=== PATIENT | female | born 1940 | race Caucasian/White ===

== ENCOUNTER 2021-04-15 16:51 | Emergency (ER) | payer MEDICARE, SELFPAY ==
[2021-04-15 16:53] VITALS: BP 148/86; PULSE 129; RESP 16; TEMP 36.7; O2SAT 96; BMI 21.2
--- NOTE | 2021-04-15 17:37 | EDS_ITS ---
HPI History of Present Illness HPI Narrative: Dog bite left hand Chief Complaint: Bite Informant: patient Occured/Mechanism Mechanism/Context: Yes injury Onset/Context/Timing Onset: Days Context: Gradual Onset Current Severity: Mild Maximum Severity: Mild Associated Symptoms Associated Symptoms: Negative for Parasthesia, Weakness and Loss of Funtion Narrative Narrative: 80-year-old female past medical history of COPD. States she was bit by her dog on Tuesday evening. On her left hand she left hand dominant. Now has redness and swelling. She denies any fever or chills. Prior similar symptoms: No Recent Illness/Hospitalization: No ROS ROS ED ROS Narrative Denies illness. Review of Systems ROS Unobtainable: Denies due to encephalopathy Constitutional Constitutional ED: Denies chills or fever(s) Eyes Eyes: Denies change in vision ENT ENT ED: Denies ear pain or sore throat Cardiovascular Cardiovascular: Denies chest pain Respiratory/Chest Respiratory/Chest: Denies dyspnea Gastrointestinal Gastrointestinal: Denies abdominal pain, nausea or vomiting Genitourinary Genitourinary ED: Denies dysuria Musculoskeletal Musculoskeletal: Denies myalgias Integumentary Denies rash Neurologic Neurologic: Denies headache(s) Psychiatric Psychiatric: Denies depression Endocrine Endocrinology: Denies polyuria Hematologic/Lymphatic Hematologic/Lymphatic: Denies easy bruising Allergic/Immunologic Allergic/Immunologic ED: Denies urticaria PFSH PFSH Medical History COPD (chronic obstructive pulmonary disease) Home Medications amoxicillin-pot clavulanate [Augmentin] 1 tab PO BID 10 Days #20 tab 04/15/21 [Rx Last Taken Unknown] Allergy/AdvReac Type Severity Reaction Status Date / Time ANTIBIOTICS Allergy NEEDS Uncoded 04/15/21 16:52 FOLLOW-UP Surgical History History of lumpectomy S/P appendectomy Social History Smoking Status: Former smoker EXAM Physical Exam Narrative Exam Narrative: 80-year-old female no acute distress vital signs stable afebrile. HEENT exam normal. Neck nontender. Left hand at the palm she is a puncture wound at the base of her left long finger near the webspace. There is swelling and cellulitis. She Can Open and Close Her Left Hand. There Is No Signs of Tenosynovitis. There Is No Streaking. The Forearm and Upper Arm and Axilla Are Nontender. There Is No Axillary Lymphadenopathy. Left Hand Is Neurovascularly Intact. Otherwise Exam Unremarkable. Const Vital Signs: 04/15/21 16:53 Temperature 98.1 F Temperature Source Temporal Pulse Rate 129 H Respiratory Rate 16 Blood Pressure 148/86 H Blood Pressure Mean 106 Pulse Ox 96 Oxygen Delivery Method Room Air Positive well nourished and well developed; Negative for obese or cachectic General Appearance ED: well developed and NAD; Negative for cachectic Nutritional Appearance: Negative for cachectic or obese HEENT Reports moist mucous membranes normocephalic and atraumatic Eyes PERRL and EOMs intact bilaterally Neck full ROM and no lymphadenopathy General: Negative for tenderness Resp normal respiratory effort and clear to auscultation bilaterally Auscultation: Negative for rales, rhonchi or wheezes Cardio regular rate, regular rhythm, S1 normal heart sound and no murmurs GI non-tender, non-distended and no masses Auscultation: normoactive bowel sounds Palpation: soft; Negative for tender, guarding or rebound tenderness present Back/Spine no CVA tenderness Extremity normal to inspection Extremity Narrative: Extremities normal except left hand palm puncture wound dog bite left hand base of the left long finger. Redness and swelling. No lymphangitic streaking. No axillary lymphadenopathy. Nontender forearm. Able to open and close her hand no signs of tenosynovitis. Discussed with the patient admission for IV antibiotics and she refuses. She understands the risk. Neuro oriented x3 Sensorium / Orientation: alert, oriented to person, oriented to place and oriented to time; Negative for orientation impaired, confused, lethargic or stuporous Motor Exam: strength 5/5 throughout Psych mental status grossly normal and thought process normal Skin Skin Narrative: Left hand cellulitis and swelling. Primarily along the metacarpal phalangeal joints of the index long and ring fingers. No tenosynovitis. Obvious dog bite soft tissue infection. MDM MDM MDM Narrative Medical decision making narrative: Patient has a dog bite left hand infection. She is left-hand dominant. Bushra with the patient at length. I try to talk her and that being admitted for IV antibiotics she definitely wants to try this at home with oral antibiotics. She understands it may get a lot worse and this may result in her needing hand surgery and again she does not want to be admitted. She knows to return if increasing pain, swelling with fever or streaks. She will be given a dose of Augmentin here and placed on Augmentin for the next 10 days. She has no primary care physician. Discharge Plan Triage Chief Complaint: Bite ED Provider: Spike Mercedes Dx/Rx/DC Orders Clinical Impression: Dog bite of left hand with infection Instructions: ED Dog Bite Prescriptions: New amoxicillin-pot clavulanate [Augmentin] 875-125 mg tablet 1 tab PO BID 10 Days Qty: 20 RF: 0 Primary Care Provider: Care Physician,No Primary Referrals: Tiago Ren MD [STAFF PHYSICIAN] - 2 Days Care Physician,No Primary [Primary Care Provider] - Activity Restrictions/Additional Instructions: Ice and elevate your left hand to decrease pain and swelling. Tylenol for pain and Motrin for pain and swelling. Return immediately if looking a lot worse meaning increasing pain, increasing sw elling, increasing redness or streaks up in your forearm or fever. The oral antibiotics may not work and you may end up back in the emergency department and needs surgery on your hand and admitted for IV antibiotics. Follow-up to ensure this is worse related. Disposition Disposition: Home, Self Care
[2021-04-15] MEDS: Amox/Clavulanate 875 MG Tablet PO (17:57)
== END 2021-04-15 17:58 | disposition home or self-care (01) ==
PROVIDERS: Emergency Provider Emergency Medicine
DX: S60.572A Other superficial bite of hand of left hand, initial encounter (principal); L03.114 Cellulitis of left upper limb; W54.0XXA Bitten by dog, initial encounter; Y93.9 Activity, unspecified; Y92.9 Unspecified place or not applicable; Y99.9 Unspecified external cause status; J44.9 Chronic obstructive pulmonary disease, unspecified; Z87.891 Personal history of nicotine dependence
CPT/HCPCS: 99283

== ENCOUNTER 2021-04-19 00:35 | Emergency (ER) | payer MEDICARE, SELFPAY ==
[2021-04-19 00:37] VITALS: BP 141/78; PULSE 99; RESP 19; TEMP 36.6; O2SAT 98; BMI 21.4
[2021-04-19 00:41] VITALS: BP 141/78; PULSE 103; RESP 17; TEMP 36.9; O2SAT 99
--- NOTE | 2021-04-19 01:00 | RAD_ITS ---
STUDY: X-RAY - LEFT HAND REASON FOR EXAM: Female, 80 years old. Dog bite redness and swelling in the MCP joint TECHNIQUE: 3 view(s) of the left hand. COMPARISON: None. FINDINGS: Mild soft tissue swelling about the third MCP joint. No radiopaque foreign body. No fracture or dislocation. Degenerative changes at the first CMC joint and all interphalangeal joints. RAD/Hand Min 3 Views IMPRESSION: Soft tissue swelling about the third MCP joint without radiopaque foreign body or finding of fracture. Electronically Signed: Jensen Thurston MD at 1:25 EDT Tel , Service support ,
--- NOTE | 2021-04-19 01:05 | EDS_ITS ---
HPI History of Present Illness Chief Complaint: Bite Informant: patient Narrative Narrative: Left hand dominant female presents for wound check left hand. Patient had a dog bite a week ago today it was her own dog. Unknown on her tetanus history. Reports was seen 4 days later at this hospital and evaluated. States there was significant swelling and redness of the hand, states she was placed on Augmentin for 10 days. She has been taking the medications. She reports the swelling has improved. She reports there is increasing redness around the wound over 2 days and today noted little swelling of the forearm. Denies fevers or drainage from the site. She is not a diabetic. She came stating she was told that this should all improve in 2 days and has not. Reviewing records, noted she was seen and was recommended potential admission for IV antibiotics. It was told to her that this could worsen significantly and will require return for admission. However per patient's report swelling has improved. Tetanus Immunization: Unknown [facility] Medical History COPD (chronic obstructive pulmonary disease) Home Medications amoxicillin-pot clavulanate [Augmentin] 1 tab PO BID 10 Days #20 tab 04/15/21 [Rx Last Taken Unknown] Allergy/AdvReac Type Severity Reaction Status Date / Time ANTIBIOTICS Allergy NEEDS Uncoded 04/19/21 00:43 FOLLOW-UP Surgical History History of lumpectomy S/P appendectomy Social History Smoking Status: Former smoker ROS ROS ED Constitutional Constitutional ED: Denies chills, fever(s) or sweats Eyes Eyes: Denies change in vision ENT ENT ED: Denies dysphagia or sore throat Cardiovascular Cardiovascular: Denies chest pain, leg edema, palpitations or racing heartbeat Respiratory/Chest Respiratory/Chest: Denies cough, dyspnea or dyspnea on exertion Gastrointestinal Gastrointestinal: Denies abdominal pain, diarrhea, nausea or vomiting Genitourinary Genitourinary ED: Denies dysuria, hematuria or urinary frequency Musculoskeletal Musculoskeletal: Denies back pain, extremity pain or neck pain Integumentary Reports rash and other Details: Dog bite left hand ; Denies wounds Neurologic Neurologic: Denies headache(s), paresthesias or weakness EXAM Physical Exam Const Vital Signs: 04/19/21 00:37 04/19/21 00:41 04/19/21 02:46 Temperature 98 F 98.5 F Temperature Source Temporal Temporal Pulse Rate 99 103 H 108 H Respiratory Rate 19 H 17 18 Blood Pressure 141/78 H 141/78 H 154/79 H Blood Pressure Mean 99 99 Pulse Ox 98 99 95 Oxygen Delivery Method Room Air Room Air Positive well nourished and well developed General Appearance ED: well developed and NAD HEENT Reports moist mucous membranes normocephalic and atraumatic Eyes PERRL, EOMs intact bilaterally and conjunctivae normal General Eye ED: Yes normal appearance of both eyes Neck no lymphadenopathy and supple General: Negative for tenderness Chest Wall Chest: Negative for tenderness Resp normal respiratory effort and normal air movement Effort and Inspection: symmetric chest movement; Negative for respiratory distress Cardio regular rate, regular rhythm and no murmurs Peripheral Pulses: pulses 2+ throughout GI normal to inspection, nondistended, normoactive bowel sounds and non-tender Palpation: Negative for guarding or rebound tenderness present Back/Spine no CVA tenderness and no thoracic nor lumbar tenderness Extremity normal to inspection General Extremety ED: Negative for edema or tenderness General Extremity: Negative for edema Neuro oriented x3 and no sensory deficits noted Sensorium / Orientation: awake and alert Skin Skin Narrative: Left upper extremity: Puncture scabbing at the third webspace dorsally, erythema around this site there is slight swelling dorsal aspect of the hand. There is no pain with movement of the fingers. There is no active drainage. Slight swelling at the ulnar aspect of the distal forearm very minimal redness. There is no medial arm erythema, there is no axillary lymphadenopathy. There is no crepitus of the skin. MDM MDM MDM Narrative Medical decision making narrative: Patient returns for evaluation reporting slight increased redness at the wound area however swelling has improved. She has been taking her Augmentin. Due to concerns I did check labs white count 7.3. X-ray noted mild soft tissue swelling. She was given a dose of Unasyn. With patient's history and exam concerns for gravity induced swelling at the distal forearm. There is mild erythema in this area however this is away from the lymph node regions. She is having better range of motion when discussed with patient with the decrease in swelling. Discussed good wound care with the patient I do feel she is safe for discharge home. She will finish her antibiotics. The erythema was outlined with return precautions. She was given follow-up with Dr. Ren from her last visit, information given for outpatient follow-up. All questions were answered. Lab Data Attestation: I reviewed the patient's lab results. Labs: Laboratory Results - last 24 hr 04/19/21 04/19/21 00:57 00:57 WBC 7.3 RBC 4.69 Hgb 13.8 Hct 40.9 MCV 87.2 MCH 29.4 MCHC 33.7 RDW Std Deviation 41.5 RDW Coeff of Moon 13.1 Plt Count 233 MPV 11.8 Immature Gran % (Auto) 0.400 Neut % (Auto) 58.8 Lymph % (Auto) 30.4 [place] % (Auto) 7.4 Eos % (Auto) 2.6 Baso % (Auto) 0.4 Absolute Neuts (auto) 4.3 Absolute Lymphs (auto) 2.21 Nucleated RBC % 0 Sodium 141 Potassium 3.2 L Chloride 106 Carbon Dioxide 29.0 Anion Gap 6 BUN 23 H Creatinine 0.62 Estim Creat Clear Calc 36.67 Est GFR (MDRD) Af Amer 119 Est GFR (MDRD) Non-Af 99 BUN/Creatinine Ratio 37.0 H Glucose 122 H Calcium 9.5 Radiography Diagnostic Testing: Clinical Impression(s) from Imaging Studies Hand X-Ray 04/19/21 01:00 IMPRESSION: Soft tissue swelling about the third MCP joint without radiopaque foreign body or finding of fracture. Electronically Signed: Jensen Thurston MD at 1:25 EDT Tel , Service support , Discharge Plan Triage Chief Complaint: Bite ED Provider: Andrew Kelly Dx/Rx/DC Orders Clinical Impression: Dog bite of left hand with infection Instructions: ED Dog Bite Prescriptions: No Action amoxicillin-pot clavulanate [Augmentin] 875-125 mg tablet 1 tab PO BID 10 Days Qty: 20 RF: 0 Primary Care Provider: Care Physician,No Primary Referrals: Tiago Ren MD [STAFF PHYSICIAN] - 5-7 Days Care Physician,No Primary [Primary Care Provider] - Activity Restrictions/Additional Instructions: Finish your antibiotic. Symptoms worsen return to the ED. Disposition Disposition: Home, Self Care Discharge Date/Time: 04/19/21 02:48
[2021-04-19 01:11] LABS: Absolute Lymphocyte Count 2.21 X10^3/uL (0.83-4.51); Absolute Neutrophil Count 4.3 X10^3/uL (2.0-7.7); Basophil# 0.03 X10^3/uL; Basophil% 0.4 % (0-1); Eosinophil# 0.19 X10^3/uL; Eosinophils% 2.6 % (0-5); Hematocrit 40.9 % (37-47); Hemoglobin 13.8 g/dL (12.0-15.0); Lymphocyte # 2.21 X10^3/ul (0.83-4.51); Lymphocyte % 30.4 % (19-41); Mean Corp Hgb Conc 33.7 g/dL (32-36); Mean Corpuscular Hgb 29.4 pg (27.0-32.0); Mean Corpuscular Volume 87.2 fL (81-99); Mean Platelet Vol. 11.8 fl (6.2-12.0); Monocyte# 0.54 X10^3/uL; Monocyte% 7.4 % (0-10); NRBC Flagged by Analyzer 0 % (0-5); Neutrophil # 4.26 X10^3/uL (2.7-7.7); Neutrophil % 58.8 % (47-70); Platelet Count 233 K/mm3 (150-450); RBC Distribution Width CV 13.1 % (11.6-14.6); RBC Distribution Width SD 41.5 fl (35.1-43.9); Red Blood Count 4.69 M/mm3 (4.2-5.4); White Blood Count 7.3 K/mm3 (4.4-11.0)
[2021-04-19 01:28] LABS: Anion Gap 6 (5-15); BUN 23 mg/dL (7-18); Calcium,Total 9.5 mg/dL (8.5-10.1); Chloride 106 mmol/L (98-107); Creatinine, Serum 0.62 mg/dL (0.55-1.02); EST Glomerular Filtration Rate 99 mL/min (>60); Est Glom Filt Rate - Afr Amer 119 mL/min (>60); Estimated Creatinine Clearance 36.67 ml/min; Glucose 122 mg/dL (74-106); Potassium 3.2 mmol/L (3.5-5.1); Sodium Level 141 mmol/L (136-145)
[2021-04-19] MEDS: Diphth,Pertuss(Acell),Tet Vac 0.5 ML Vial IM (01:29)
[2021-04-19 02:46] VITALS: BP 154/79; PULSE 108; RESP 18; O2SAT 95
== END 2021-04-19 02:48 | disposition home or self-care (01) ==
PROVIDERS: Emergency Provider Emergency Medicine
DX: S60.572A Other superficial bite of hand of left hand, initial encounter (principal); L08.9 Local infection of the skin and subcutaneous tissue, unspecified; W54.0XXA Bitten by dog, initial encounter; Y93.9 Activity, unspecified; Y92.9 Unspecified place or not applicable; Y99.9 Unspecified external cause status; Z87.891 Personal history of nicotine dependence; J44.9 Chronic obstructive pulmonary disease, unspecified
CPT/HCPCS: 73130; 80048; 85025; 90471; 90715; 96365; 99282; J7050; A4216; J0295

== ENCOUNTER 2024-12-25 04:57 | Emergency (ER) | payer MEDICARE, SELFPAY ==
[2024-12-25 04:58] VITALS: BP 157/88; PULSE 107; RESP 16; TEMP 36.1; O2SAT 95; BMI 21.8
--- OUTSIDE RECORDS SUMMARY | 2024-12-25 05:28 | XMS RPT_ITS | CCD ---
Author Organization [place] [facility] Care Team Providers Care Wader Boot Top Assembler Name Role Phone LeticiaAndrew Attending [facility] Care Physician, No Primary Primary Care Unava ilable Allergies Allergy Classification Reported Allergen(s) Allergy Type Date of Onset Reaction(s) Facility (1 source) ANTIBIOTICS; Translations: [ANTIBIOTICS] Propensity to adverse reactions (disorder) [facility] Repository Problems Problem Classification Problem Date Documented Da te Episodic/Chronic Superficial injury; contusion (1 source) Other superficial bite of hand of left hand, initial encounter; Translations: [Other superficial bite of hand of left hand, initial encounter] Onset: 02-10-2023 Episodic Results Test Name Value Interpretation Reference Range Facil jillian MANDYJIMemilia 04-15-2021 CNOV Office Visit ([facility]) DEBRA MOY ([id number]) 1940 F Date Time Provider Department 04/15/21 1:30 PM MAURY NEGRON [facility] During your visit today, we recorded the following information about you: Temperature Pulse Respiration Blood pressure 97.3 degrees 146/minute 18/minute 142/92 Weight 53.5 kg Maury Negron APRN.CNP 04/15/2021 1:57 PM Signed 80 year old female presents with left hand swelling. She was bit by dog 4 days [employer]. Right hand with diffuse erythema and swelling. Limited and reduced ROM Would benefit from ortho consult with I AND D including possible admission given extent of redness and swelling. Declines EMS. ER Passport filled out. Referring Provider: SELF [[id number]] Allergies As of Date: 04/15/2021 Noted Allergy Reaction CODEINE 10/26/2005 8 - GI Upset CONTRAST DYE (IODINE) 08/12/2015 14 - Other: See Comments Comments: Swollen veins GLUTEN 08/12/2015 11 - Vomiting Date Reviewed: 04/15/2021 Reviewed by: Elvi Alberto MA - Fully Assessed Reason for Visit: Animal Bite [[id number]] Cmt: L hand dog bite x4 days Primary Visit Diagnosis:Cellulitis of hand [L03.119] Other Visit Diagnosis:Dog bite, initial encounter [W54.0XXA] Problem List As Of Date: 04/15/2021 (None) Encounter Status:Closed by MAURY NEGRON on 04/15/21 Normal [facility] Encounters Encounter Date Encounter Type Care Provider Facility Start: 04-19-2021 End: 04-19-2021 Emergency department patient visit Andrew Kelly Facility:[facility] Payers Date Payer Category Payer Private Health Insurance [facility] 2021 Self-pay Unknown [id number] Progress note 04-15-2021 Note Date & Type Note Facility 04-15-2021 Note HNO ID: [id number] Author: Maury Negron APRN.RING MAKER Service: ? Author Type: Nurse Practitioner Type: Progress Notes Filed: 04/15/2021 1:57 PM Note Text: 80 year old female presents with left hand swelling. She was bit by dog 4 days [employer]. Right hand with diffuse erythema and swelling. Limited and reduced ROM Would benefit from ortho consult with I AND D including possible admission given extent of redness and swelling. Declines EMS. ER Passport filled out. [facility] Summary Purpose Family History No Family History Records FoundNo Family History Records Found Advance Directives No Advanced Directives Records FoundNo Advanced Directives Records Found Additional Source Comments INFORMATION SOURCE (unrecogn ized section and content) DATE CREATED AUTHOR 07/21/2021 [facility] DATE CREATED AUTHOR AUTHOR'S ORGANIZ ATION 02/11/2023 [facility] FOR RECORDS PERTAINING TO PATIENTS WHO ARE OR HAVE BEEN ENROLLED IN A CHEMICAL DEPENDENCY/SUBSTANCEABUSE PROGRAM, SOME INFORMATION MAY BE OMITTED. This clinical summary was aggregated from multiple sources. Caution should be exercised in using it in the provision of clinical care. This summary normalizes information from multiple sources, and as a consequence, information in this document may materially change the coding, format and clinical context of patient data. In addition, data may be omitted in some cases. CLINICAL DECISIONS SHOULD BE BASED ON THE PRIMARY CLINICAL RECORDS. [facility]. provides no warranty or guarantee of the accuracy or completeness of information in this document.
--- NOTE | 2024-12-25 06:50 | EDS_ITS ---
HPI History of Present Illness Chief Complaint: Dental Informant: patient Narrative Narrative: Patient is an 84-year-old female with history of COPD. She states that she gets right sided sharp intermittent stabbing facial pain intermittently. She states it typically will go away with [id number] medications and time. However this pain started last night and has continued into this morning and not allowed her to sleep. She states despite giving her time and taking iyvn-[id number]-iixfivo medications there is been no improvement and secondary to that she presents for evaluation. She denies any recent trauma she denies any fevers or chills or difficulty breathing or swallowing. [facility] Medical History COPD (chronic obstructive pulmonary disease) Home Medications ?Medication ?Instructions ?Recorded ?Last Taken ?Type amoxicillin 875 mg-potassium 1 tab PO BID 10 days #20 tabs 04/15/21 Unknown Rx clavulanate 125 mg tablet (Augmentin) baclofen 5 mg tablet 5 mg PO TID PRN muscle 12/25 Unknown Rx spasm/facial pain #30 tabs carbamazepine 200 mg tablet 200 mg PO TID 30 days #90 tabs 12/25/24 Unknown Rx (Tegretol) ondansetron 4 mg disintegrating 4 mg PO TID PRN nausea and 12/25/24 Unknown Rx tablet vomiting #21 tabs Allergy/AdvReac Type Severity Reaction Status Date / Time gluten Allergy Nausea/Vom/ Verified 12/25/24 05:04 Diarrhea Surgical History History of lumpectomy S/P appendectomy Social History Smoking Status: Former smoker ROS ROS ED Constitutional Constitutional ED: Denies chills or fever(s) Eyes Eyes: Denies change in vision ENT ENT ED: Reports other Details: Positive right sided facial pain Cardiovascular Cardiovascular: Denies chest pain Respiratory/Chest Respiratory/Chest: Denies cough or dyspnea Gastrointestinal Gastrointestinal: Reports nausea; Denies abdominal pain, diarrhea or vomiting Musculoskeletal Musculoskeletal: Denies neck pain Integumentary Denies rash Neurologic Neurologic: Denies headache(s) Hematologic/Lymphatic Hematologic/Lymphatic: Denies easy bleeding or easy bruising Allergic/Immunologic Allergic/Immunologic ED: Denies mouth swelling or tongue swelling EXAM Physical Exam Const Vital Signs: 12/25/24 04:58 12/25/24 07:09 Temperature 97 F L 98 F Temperature Source Oral Pulse Rate 107 H 77 Respiratory Rate 16 16 Blood Pressure 157/88 H 132/88 H Blood Pressure Mean 111 102 Pulse Ox 95 100 Oxygen Delivery Method Room Air Positive well nourished and well developed General Appearance ED: well developed; Negative for pallor HEENT HEENT Narrative: Normocephalic atraumatic There are dental caries noted but no signs of dental abscess No signs of ANUG No tongue or lip swelling no oral lesions no airway edema or compromise Eyes PERRL and EOMs intact bilaterally General Eye ED: Negative for scleral icterus Neck supple Neck Narrative: No nuchal rigidity or meningeal signs Resp normal respiratory effort Resp Narrative: Breath sounds are diminished throughout with faint expiratory wheeze in the bilateral bases consistent with history of COPD; however no signs of respiratory distress Cardio regular rate and regular rhythm Extremity normal to inspection Neuro oriented x3, CN's II-XII intact bilaterally and no sensory deficits noted Sensorium / Orientation: alert Motor Exam: strength 5/5 throughout Psych mental status grossly normal Skin no rashes or lesions noted and no wounds Skin Narrative: No facial swelling or redness to suggest infection such as cellulitis or abscess General Skin Exam: Negative for jaundice or pallor MDM MDM MDM Narrative Medical decision making narrative: Patient arrived to the ER hypertensive otherwise with stable vitals. She reported a shocking pain to the right side of her face that was intermittent. By exam there is no obvious signs of cellulitis or abscess or dental infection. There is no report or signs of trauma to suggest hematoma or facial fracture. With the sudden onset of her symptoms that are sharp/shocking in nature and intermittent along the right side of the face this is most likely trigeminal neuralgia. The patient was given oral carbamazepine baclofen and Zofran. She reported improvement of her pain and as there is no signs of angioedema or anaphylaxis or secondary infection do not further need for further workup and she is otherwise safe for discharge. History & Record Review Discussion w/independent historian: Patient Discharge Plan Triage Chief Complaint: Dental ED Provider: Kyler Kumari Dx/Rx/DC Orders Clinical Impression: Trigeminal neuralgia of right side of face, COPD (chronic obstructive pulmonary disease) Instructions: ED Trigeminal Neuralgia Prescriptions: New carbamazepine [Tegretol] 200 mg tablet 200 mg PO TID 30 Days Qty: 90 0RF baclofen 5 mg tablet 5 mg PO TID PRN (Reason: muscle spasm/facial pain) Qty: 30 1RF ondansetron 4 mg tablet,disintegrating 4 mg PO TID PRN (Reason: nausea and vomiting) Qty: 21 0RF No Action amoxicillin-pot clavulanate [Augmentin] 875-125 mg tablet 1 tab PO BID 10 Days Qty: 20 0RF Primary Care Provider: Care Physician,No Primary Referrals: Nicolas Barnes MD [Non-Staff -Ordering Privileges] - (? Trigeminal neuralgia) Care Physician,No Primary [Primary Care Provider] - Activity Restrictions/Additional Instructions: Please take the carbamazepine 3 times a day whether you are in pain or not as this should help prevent reoccurrence of your facial pain. If the carbamazepine is not sufficient at controlling your pain you may add the baclofen/muscle relaxer if needed. Please follow-up with neurology for further evaluation and return to the ER should you have any further concerns Print Language: Turkish Disposition Disposition: Home, Self Care Discharge Date/Time: 12/25/24 07:18
[2024-12-25 07:09] VITALS: BP 132/88; PULSE 77; RESP 16; TEMP 36.6; O2SAT 100
== END 2024-12-25 07:18 | disposition home or self-care (01) ==
PROVIDERS: Emergency Provider Emergency Medicine; Visit Provider Emergency Medicine
DX: G50.0 Trigeminal neuralgia (principal); J44.9 Chronic obstructive pulmonary disease, unspecified; Z87.891 Personal history of nicotine dependence
CPT/HCPCS: 99283

== ENCOUNTER 2025-01-30 09:08 | Emergency (ER) | payer MEDICARE, SELFPAY ==
[2025-01-30 09:09] VITALS: BP 174/69; PULSE 98; RESP 16; TEMP 36.6; O2SAT 96; BMI 22.0
--- NOTE | 2025-01-30 09:24 | EX.ED.DYSGE1 ---
HPI History of Present Illness Chief Complaint: Med Refill Detail of Chief Complaint: Requesting medication refill Informant: patient Narrative Narrative: Patient presents the emergency department requesting medication refill for Tegretol which she was prescribed about a month ago. Patient states that she has been having intermittent episodes of right sided facial pain. She was diagnosed with trigeminal neuralgia during her last visit and started Tegretol. She took her last dose this morning. Patient states that she was referred to neurology but cannot get in until May. Patient also has an appointment with her primary care physician coming up in a couple of weeks. Currently not having any pain. She denies headaches. She describes an electricity like pain that starts in her right lip and goes into her right eye and right forehead. Patient denies any injury or trauma to her head. She is an ex-smoker. [facility] Medical History COPD (chronic obstructive pulmonary disease) Home Medications ?Medication ?Instructions ?Recorded ?Last Taken ?Type amoxicillin 875 mg-potassium 1 tab PO BID 10 days #20 tabs 04/15/21 Unknown Rx clavulanate 125 mg tablet (Augmentin) baclofen 5 mg tablet 5 mg PO TID PRN muscle 12/25/24 Unknown Rx spasm/facial pain #30 tabs carbamazepine 200 mg tablet 200 mg PO TID 30 days #90 tabs 12/25/24 Unknown Rx (Tegretol) ondansetron 4 mg disintegrating 4 mg PO TID PRN nausea and 12/25/24 Unknown Rx tablet vomiting #21 tabs carbamazepine 200 mg tablet 200 mg PO TID #90 tabs 01/30/25 Unknown Rx (Epitol) Allergy/AdvReac Type Severity Reaction Status Date / Time gluten Allergy Nausea/Vom/ Verified 01/30/25 09:11 Diarrhea Iodinated Contrast Media Allergy UNSURE Verified 01/30/25 09:11 (contrast dye - iodinated) Surgical History History of lumpectomy S/P appendectomy Social History Smoking Status: Former smoker ROS ROS ED ROS Narrative Medication refill request Review of Systems ROS Unobtainable: other Constitutional Constitutional ED: Reports lethargy; Denies chills, fever(s), sweats or weight loss Eyes Eyes: Denies blurry vision, change in vision or diplopia ENT ENT ED: Reports other Details: Intermittent right facial pain ; Denies rhinorrhea or sore throat Cardiovascular Cardiovascular: Denies chest pain, orthopnea or racing heartbeat Respiratory/Chest Respiratory/Chest: Denies cough, dyspnea, dyspnea on exertion, orthopnea or sputum Gastrointestinal Gastrointestinal: Denies abdominal pain, diarrhea, nausea or vomiting Genitourinary Genitourinary ED: Denies dysuria, hematuria or urinary frequency Musculoskeletal Musculoskeletal: Denies arthralgias, back pain, myalgias or neck pain Integumentary Denies abscess, Abrasions or rash Neurologic Neurologic: Denies headache(s) or weakness Psychiatric Psychiatric: Denies anxiety, depression or suicidal thoughts Endocrine Endocrinology: Denies polydipsia, polyphagia or polyuria Hematologic/Lymphatic Hematologic/Lymphatic: Denies easy bleeding, easy bruising or lymphadenopathy Allergic/Immunologic Allergic/Immunologic ED: Denies mouth swelling, tongue swelling or urticaria EXAM Physical Exam Const Vital Signs: 01/30/25 09:09 Temperature 97.8 F Temperature Source Oral Pulse Rate 98 Respiratory Rate 16 Blood Pressure 174/69 H Blood Pressure Mean 104 Pulse Ox 96 Oxygen Delivery Method Room Air Positive well nourished and well developed General Appearance ED: well developed and NAD HEENT Reports TM's clear and moist mucous membranes HEENT Narrative: No soft tissue swelling to the face noted. There is no erythema or warmth. No dental tenderness on exam. No rashes. normocephalic and atraumatic; Negative for trauma or tenderness Tympanic Membrane ED: Yes TM's clear Eyes PERRL and EOMs intact bilaterally General Eye ED: Negative for pale conjunctiva or scleral icterus Neck no lymphadenopathy, supple and no JVD General: Negative for tenderness Chest Wall inspection of chest normal and palpation of chest normal Chest: Negative for tenderness Resp normal respiratory effort and clear to auscultation bilaterally Effort and Inspection: Negative for respiratory distress or pain with movement Auscultation: Negative for rhonchi, wheezes or diminished lung sounds Cardio regular rate, regular rhythm, S1 normal heart sound, S2 normal heart sound and no murmurs Peripheral Pulses: pulses 2+ throughout GI normal to inspection, nondistended, normoactive bowel sounds, soft to palpation, non-tender, non-distended and no masses Back/Spine no CVA tenderness and no thoracic nor lumbar tenderness Extremity normal to inspection General Extremety ED: Negative for edema General Extremity: Negative for edema Neuro oriented x3, CN's II-XII intact bilaterally, no sensory deficits noted and gait normal Sensorium / Orientation: awake, alert, oriented to person, oriented to place and oriented to time Motor Exam: strength 5/5 throughout and strength abnormal Psych mental status grossly normal Skin no rashes or lesions noted and no wounds MDM MDM MDM Narrative Medical decision making narrative: Patient presents with intermittent right-sided facial pain. Recent ER treatment with Tegretol and diagnosed with trigeminal neuralgia. She tells me she had somewhat similar pain 3 years ago that then resolved after a short time and has had some intermittent pain to the right side of her face. Clinically she looks well. She has follow-up appointment with neurology and primary care physician. She will be given a prescription for Tegretol as that this seems to help with her pain. Discharge Plan Triage Chief Complaint: Med Refill ED Provider: Majo Jackson Dx/Rx/DC Orders Clinical Impression: Medication refill, Trigeminal neuralgia of right side of face Instructions: Med Refill, ED Trigeminal Neuralgia Prescriptions: New carbamazepine [Epitol] 200 mg tablet 200 mg PO TID Qty: 90 0RF No Action amoxicillin-pot clavulanate [Augmentin] 875-125 mg tablet 1 tab PO BID 10 Days Qty: 20 0RF carbamazepine [Tegretol] 200 mg tablet 200 mg PO TID 30 Days Qty: 90 0RF baclofen 5 mg tablet 5 mg PO TID PRN (Reason: muscle spasm/facial pain) Qty: 30 1RF ondansetron 4 mg tablet,disintegrating 4 mg PO TID PRN (Reason: nausea and vomiting) Qty: 21 0RF Primary Care Provider: Care Physician,No Primary Referrals: Care Physician,No Primary [Primary Care Provider] - Activity Restrictions/Additional Instructions: Keep your appointment with neurology and your primary care physician Print Language: [place] Disposition Disposition: Home, Self Care
[2025-01-30 09:43] VITALS: BP 139/74; PULSE 62; RESP 19; TEMP 36.8; O2SAT 100
--- OUTSIDE RECORDS SUMMARY | 2025-01-30 11:14 | XMS RPT_ITS | CCD ---
Author Organization [facility] Care Team Providers Care Shank Inspector Name Role Phone Care Physician, No Primary Primary Care Provider Unavailable Dr. Kyler Kumari DO Emergency Provider Kyler Kumari Attending Unavailable Care Physician, No Primary Primary Care Unava ilable Unavailable Primary Care Provider Unavailabl e Dr. Kyler Kumari DO Attending Provider Dr. Majo Jackson DO Emergency Provider Allergies Allergy Classification Reported Allergen(s) Allergy Type Date of Onset Reaction(s) Facility (3 sources) Wheat gluten extract Drug Allergy 6 Vomiting [facility] (1 source) Gluten Drug allergy (disorder) 5 [facility] Repository (1 source) Codeine Drug Allergy 6 GI Upset [facility] Work Phone: (1 source) Iodine Drug Allergy 6 Other: See Comments [facility] (1 source) Triiodobenzoic Acids Allergy to substance 5 UNSURE [facility] Medications Current Medications Medication Drug Class(es) Dates Sig (Normalized) Sig (Original) amoxicillin 875 mg / clavulanate 125 mg oral tablet (2 sources) Penicillin-class Antibacterial Start: 04-15-2021 Amoxicillin-Pot Clavulanate (Augmentin) 875-125 mg tablet Active 1 {tbl} PO TWICE A DAY April 15, 2021 12:00am baclofen 5 mg oral tablet (2 sources) gamma-Aminobutyric Acid-ergic Agonist Start: 12-25-2024 take 1 tablet by mouth three times daily as needed for pain Baclofen 5 mg tablet Active 5 mg PO THREE TIMES A DAY as needed for muscle spasm/facial pain 30 December 25, 2024 6:51am carBAMazepine 200 mg oral tablet (3 sources) Mood Stabilizer Start: 12-25-2024 take 1 tablet by mouth three times daily Carbamazepine (Epitol) 200 mg tablet Active 200 mg PO THREE TIMES A DAY 90 0 January 30, 2025 12:00am ondansetron 4 mg disintegrating oral tablet (2 sources) Serotonin-3 Receptor Antagonist Start: 12-25-2024 take 1 tablet by mouth three times daily as needed for nausea and vomiting Ondansetron 4 mg tablet,disintegrat ing Active 4 mg PO THREE TIMES A DAY as needed for nausea and vomiting 21 0 December 25, 2024 6:51am Problems Problem Classification Problem Date Documented Da te Episodic/Chronic Administrative/social admission (1 source) Repeated prescription; Translations: [Encounter for issue of repeat prescription] 01-30-2025 Episodic Chronic obstructive pulmonary disease and bronchiectasis (1 source) Chronic obstructive lung disease; Translations: [Chronic obstructive pulmonary disease, unspecified] 01-02-2025 Chronic Disorders of teeth and jaw (1 source) Other specified disorders of teeth and supporting structures; Translations: [Other specified disorders of teeth and supporting structures] Onset: 01-01-2025 Episodic Open wounds of extremities (2 sources) Dog bite of hand; Translations: [Open bite of left hand, initial encounter] 04-23-2021 Episodic Other nervous system disorders (2 sources) Trigeminal neuralgia; Translations: [Trigeminal neuralgia] 12-25-2024 Episodic Residual codes; unclassified (1 source) Procedure not done; Translations: [Procedure and treatment not carried out, unspecified reason] 01-28-2025 Episodic Unclassified (2 sources) ? Trigeminal neuralgia Results Test Name Value Interpretation Reference Range Facil ity Emergency Department Summary on 12-25-2024 Emergency Department Summary [facility] Medical Records Department [address] [place] [address] Emergency Department Summary 12/25/24 MR#: [id number] Acct: [id number] Name: JUANITA SIM Rep #: [id number] : 1940 84 From: Kyler Kumari DO PCP: Care Physician,No Primary Status:DEP ER Location: ED HPI History of Present Illness Chief Complaint: Dental Informant: patient Narrative Narrative: Patient is an 84-year-old female with history of COPD. She states that she gets right sided sharp intermittent stabbing facial pain intermittently. She states it typically will go away with miow-eof-[id number] medications and time. However this pain started last night and has continued into this morning and not allowed her to sleep. She states despite giving her time and taking eeub-jgr-[id number] medications there is been no improvement and secondary to that she presents for evaluation. She denies any recent trauma she denies any fevers or chills or difficulty breathing or swallowing. [facility] Medical History COPD (chronic obstructive pulmonary disease) Home Medications ???Medication ???Instructions ???Recorded ???Last Taken ???Type amoxicillin 875 mg-potassium 1 tab PO BID 10 days #20 tabs 03/28 0 Unknown Rx clavulanate 125 mg tablet (Augmentin) baclofen 5 mg tablet 5 mg PO TID PRN muscle 12/25/24 Un known Rx spasm/facial pain #30 tabs carbamazepine 200 mg tablet 200 mg PO TID 30 days #90 tabs 07/21 Unknown Rx (Tegretol) ondansetron 4 mg disintegrating 4 mg PO TID PRN nausea and 5 Unknown Rx tablet vomiting #21 tabs Allergy/AdvReac Type Severity Reaction Status Date / Time gluten Allergy Nausea/Vom/ Verified 12/25/24 05:04 Diarrhea Surgical History History of lumpectomy S/P appendectomy Social History Smoking Status: Former smoker ROS ROS ED Constitutional Constitutional ED: Denies chills or fever(s) Eyes Eyes: Denies change in vision ENT ENT ED: Reports other Details: Positive right sided facial pain Cardiovascular Cardiovascular: Denies chest pain Respiratory/Chest Respiratory/Chest: Denies cough or dyspnea Gastrointestinal Gastrointestinal: Reports nausea; Denies abdominal pain, diarrhea or vomiting Musculoskeletal Musculoskeletal: Denies neck pain Integumentary Denies rash Neurologic Neurologic: Denies headache(s) Hematologic/Lymphatic Hematologic/Lymphatic : Denies easy bleeding or easy bruising Allergic/Immunologic Allergic/Immunologic ED: Denies mouth swelling or tongue swelling EXAM Physical Exam Const Vital Signs: 12/25/24 04:58 12/25/24 07:09 Temperature 97 F L 98 F Temperature Source Oral Pulse Rate 107 H 77 Respiratory Rate 16 16 Blood Pressure 157/88 H 132/88 H Blood Pressure Mean 111 102 Pulse Ox 95 100 Oxygen Delivery Method Room Air Positive well nourished and well developed General Appearance ED: well developed; Negative for pallor HEENT HEENT Narrative: Normocephalic atraumatic There are dental caries noted but no signs of dental abscess No signs of ANUG No tongue or lip swelling no oral lesions no airway edema or compromise Eyes PERRL and EOMs intact bilaterally General Eye ED: Negative for scleral icterus Neck supple Neck Narrative: No nuchal rigidity or meningeal signs Resp normal respiratory effort Resp Narrative: Breath sounds are diminished throughout with faint expiratory wheeze in the bilateral bases consistent with history of COPD; however no signs of respiratory distress Cardio regular rate and regular rhythm Extremity normal to inspection Neuro oriented x3, CN's II-XII intact bilaterally and no sensory deficits noted Sensorium / Orientation: alert Motor Exam: strength 5/5 throughout Psych mental status grossly normal Skin no rashes or lesions noted and no wounds Skin Narrative: No facial swelling or redness to suggest infection such as cellulitis or abscess General Skin Exam: Negative for jaundice or pallor MDM MDM MDM Narrative Medical decision making narrative: Patient arrived to the ER hypertensive otherwise with stable vitals. She reported a shocking pain to the right side of her face that was intermittent. By exam there is no obvious signs of cellulitis or abscess or dental infection. There is no report or signs of trauma to suggest hematoma or facial fracture. With the sudden onset of her symptoms that are sharp/shocking in nature and intermittent along the right side of the face this is most likely trigeminal neuralgia. The patient was given oral carbamazepine baclofen and Zofran. She reported improvement of her pain and as there is (more content not included)... Normal [facility] CNOVon 04-15-2021 CNOV Office Visit ([facility] ) JUANITA SIM ([id number]) 1940 F Date Time Provider Department 04/15/21 1:30 PM MAURY NEGRON [facility] During your visit today, we recorded the following information about you: Temperature Pulse Respiration Blood pressure 97.3 degrees 146/minute 18/minute 142/92 Weight 53.5 kg Maury Negron APRN.RECTIFYING ATTENDANT 04/15/2021 1:57 PM Signed 80 year old female presents with left hand swelling. 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 Right hand with diffuse erythema and swelling. [...] Fully Assessed Reason for Visit: Animal Bite [12087] Cmt: L hand dog bite x4 days Primary Visit Diagnosis:Cellulitis of hand [L03.119] Other Visit Diagnosis:Dog bite, initial encounter [W54.0XXA] Problem List As Of Date: 04/15/2021 (None) Encounter Status:Closed by MAURY NEGRON on 04/15/21 Normal [facility] Vital Signs Date Time Vital Sign Value Performing Clinician Salvatore calderón 01-30-2025 09:43-0400 Body temperature 98.3 [degF] No Primary Care Physician [facility] 01-30-2025 09:43-0400 Diastolic blood pressure 74 mm[Hg] No Primary Care Physician [facility] 01-30-2025 09:43-0400 Heart rate 62 /min No Primary Care Physician [facility] 01-30-2025 09:43-0400 Respiratory rate 19 /min No Primary Care Physician [facility] 01-30-2025 09:43-0400 SaO2% (BldA) [Mass fraction] 100 % No Primary Care Physician [facility] 01-30-2025 09:43-0400 Systolic blood pressure 139 mm[Hg] No Primary Care Physician [facility] 01-30-2025 09:09-0400 Body height 157.48 cm No Primary Care Physician [facility] 01-30-2025 09:09-0400 Body mass index (BMI) [Ratio] 22 kg/m2 No Primary Care Physician [facility] 01-30-2025 09:09-0400 Body weight 54.7 kg No Primary Care Physician [facility] 12-25-2024 07:09-0400 Body temperature 98 [degF] No Primary Care Physician [facility] 12-25-2024 07:09-0400 Diastolic blood pressure 88 mm[Hg] No Primary Care Physician [facility] 12-25-2024 07:09-0400 Heart rate 77 /min No Primary Care Physician [facility] 12-25-2024 07:09-0400 Respiratory rate 16 /min No Primary Care Physician [facility] 12-25-2024 07:09-0400 SaO2% (BldA) [Mass fraction] 100 % No Primary Care Physician [facility] 12-25-2024 07:09-0400 Systolic blood pressure 132 mm[Hg] No Primary Care Physician [facility] 12-25-2024 04:58-0400 Body height 157.48 cm No Primary Care Physician [facility] 12-25-2024 04:58-0400 Body mass index (BMI) [Ratio] 21.8 kg/m2 No Primary Care Physician [facility] 12-25-2024 04:58-0400 Body weight 54.2 kg No Primary Care Physician [facility] Encounters Encounter Date Encounter Type Care Provider Facility Start: 01-30-2025 End: 01-30-2025 Emergency department patient visit No Primary Care Physician -Emergency Department Work Phone: Start: 01-28-2025 End: 01-28-2025 Patient encounter procedure Kofi Houser APRN.CNP Work Phone: [facility] Comment on above: Procedure not moody d out (Primary Dx) Start: 12-25-2024 End: 12-25-2024 Emergency department patient visit No Primary Care Physician -Emergency Department Work Phone: Plan of Treatment Date Care Activity Detail Author Start: 04-19-2031 Urine microalbumin profile DTaP,Tdap,Td Vaccine (2 - Td or Tdap) [facility] Start: 03-18-2025 End: 03-18-2025 Patient encounter procedure 03/18/2025 2:20 PM EDT Office Visit [facility] [address] [place], [place] [id number] Tricia Lopez MD [address] [place], [place] [id number] NEUROPATHY, NEEDS MEDICATION [facility] Comment on above: NEUROPATHY, NEEDS ME DICATION Start: 02-25-2025 Influenza vaccination Influenza Vacc ine (#1) [facility] Start: 01-30-2025 [facility] Start: 12-25-2024 [facility] Start: 06-27-2024 Advance Directive Discussion Advance Directive Discussion [facility] Start: 06-27-2024 Medicare Advantage Annual Wellness Visit Medicare Advantage Annual Wellness Visit [facility] Start: 2017 RSV Vaccine (1 - 1-d ose 75+ series) RSV Vaccine (1 - 1-dose 75+ series) [facility] Start: 11-26-2007 Screening for osteoporosis Bone Density Screening [facility] Start: 1992 Pneumococcal Vaccine : 50+ (1 of 1 - PCV) Pneumococcal Vaccine: 50+ (1 of 1 - PCV) [facility] Start: 1992 Shingrix Vaccine (1 of 2) Shingrix Vaccine (1 of 2) [facility] Start: 11-26-1987 Diabetes Screening Diabetes Screenin g [facility] Start: 1960 Anxiety Screening Anxiety Screening [facility] Start: 1960 Depression Screening Depression Scre ening [facility] Patient Education [facility] Work Phone: Immunizations Immunization Date Immunization Notes Care Provider Fa cility 04-19-2021 tetanus toxoid, redu boby diphtheria toxoid, and acellular pertussis vaccine, adsorbed No Primary Care Physician [facility] Payers Date Payer Category Payer Private Health Insurance [id number] 2024 Self-pay 2024 Medicare (Managed Care) [employer] [place] [employer] [id number] Self-pay [id number] Unknown [id number] Social History Date Type Detail Facility Start: 12-25-2024 End: 01-30-2025 Tobacco smoking status OHIS Ex-smoker (finding) [facility] Start: 1940 Sex Assigned At Female [facility] Start: 08-12-2015 Tobacco smoking stat [facility] Smokes tobacco daily [facility] History of tobacco use Cigarette Smoker [facility] Start: 08-12-2015 Tobacco use and exposure Smokeless tobacco non-user [facility] Start: 04-15-2021 Alcoholic beverage intake Not Asked [facility] Start: 04-15-2021 History of Social function [facility] Start: 04-15-2021 Tobacco use panel [facility] Start: 1940 Sex assigned at Not on file C [facility] Mental Status Date Assessment Result Facility 01-30-2025 Cognitive function Level Of Cons ciousness Awake;Alert;Appropriate;Follow s Commands [facility] Work Phone: History of Present illness Narrative 01-28-2025 Kofi Houser APRN.RECTIFYING ATTENDANT - 01/28/2025 1:30 PM EDT Note Date & Type Note Facility 01-28-2025 History of Presen t illness Narrative 84-year-old female presents urgent care requesting Neurontin refill. Patient states was seen in ED. Placed on a nerve medication. Presents today for evaluation. Discussed with patient we are unable to fill this medication in urgent care. Recommend following up with PCP for reevaluation or follow-up. Kofi Houser APRN.CONY documented in this encounter [facility] Progress note 04-15-2021 Note Date & Type Note Facility 04-15-2021 Note HNO ID: [id number] Author: Maury Negron APRN.CNP Service: ? Author Type: Nurse Practitioner Type: Progress Notes Filed: 04/15/2021 1:57 PM Note Text: 80 year old female presents with left hand swelling. 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 Right hand with diffuse erythema and swelling. Limited and reduced ROM Would benefit from ortho consult with I AND D including possible admission given extent of redness and swelling. Declines EMS. ER Passport filled out. [facility] Evaluation note Note Date & Type Note Facility Evaluation note No assessment information availa ble [facility] Work Phone: Evaluation note Note Date & Type Note Facility Evaluation note Diagnosis Procedure not carried out- Primary Procedure not carried out for other reasons documented in this encounter [facility] Discharge instructions Note Date & Type Note Facility Hospital Discharge instructions Additional Instructions Please take the carbamazepine 3 times a day whether you are in pain or not as this should help prevent reoccurrence of your facial pain. If the carbamazepine is not sufficient at controlling your pain you may add the baclofen/muscle relaxer if needed. Please follow-up with neurology for further evaluation and return to the ER should you have any further concerns [facility] Work Phone: Hospital Discharge instructions Note Date & Type Note Facility Hospital Discharge instructions Additional Instructions Keep your appointment with neurology and your primary care physician [facility] Work Phone: Summary Purpose Family History No Family History Records FoundNo Family History Records Found Advance Directives Advance Directive Response Recorded Date/ Time Do you have a Healthcare Power of Records And Tape Recordings Engineer? No December 25, 2024 5:04am Advance Directive Response Recorded Date/ Time Do you have a Healthcare Power of Records And Tape Recordings Engineer? No December 25, 2024 5:04am Do you have a Healthcare Power of Records And Tape Recordings Engineer? No January 30, 2025 9:43am Chief Complaint and Reason for Visit Chief Complaint Admit Date dental pain December 25, 2024 4:57a m Chief Complaint Admit Date dental pain December 25, 2024 4:57a m MEDICATION REFILL January 30, 2025 9:0 8am Additional Source Comments INFORMATION SOURCE (unrecogn ized section and content) DATE CREATED AUTHOR 07/21/2021 [facility] DATE CREATED AUTHOR AUTHOR'S PHILIPPE ATION 01/06/2025 [facility] y [facility] Care Teams (unrecognized sec tion and content) Team Status: Active Member Role/Relationship Status Dates No Primary Care Physician Primary Care Provider Active Team Status: Inactive Member Role/Relationship Status Dates No Primary Care Physician Primary Care Provider Active Start: December 25, 2024 End: December 25, 2024 Dr. Kyler Kumari DO Emergency Provider Active Start: December 25, 2024 End: December 25, 2024 Team Status: Inactive Member Role/Relationship Status Dates No Primary Care Physician Primary Care Provider Active Start: December 25, 2024 End: December 25, 2024 Dr. Kyler Kumari DO Attending Provider Active Start: December 25, 2024 End: December 25, 2024 Dr. Kyler Kumari DO Emergency Provider Active Start: December 25, 2024 End: December 25, 2024 Team Status: Inactive Member Role/Relationship Status Dates No Primary Care Physician Primary Care Provider Active Start: January 30, 2025 End: January 30, 2025 Dr. Majo [place] , Emergency Provider Active S tart: January 30, 2025 End: January 30, 2025 Goals (unrecognized section and content) Goals may be documented in a n alternate sectionGoals may be documented in an alternate section Source Comments (unrecognize d section and content) In the event this informatio n is protected by the Federal Confidentiality of Alcohol and Drug Abuse Patient Records regulations: The Federal rules restrict any use of the information to criminally investigate or prosecute any alcohol or drug abuse patient.[facility] FOR RECORDS PERTAINING TO PATIENTS WHO ARE [...] BE BASED ON THE PRIMARY CLINICAL RECORDS. [facility] [employer] [facility]. provides no warranty or guarantee of the accuracy or completeness of information in this document.
== END 2025-01-30 09:51 | disposition home or self-care (01) ==
LOC: ED 09:33
PROVIDERS: Emergency Provider Emergency Medicine; Visit Provider Emergency Medicine
DX: Z76.0 Encounter for issue of repeat prescription (principal); J44.9 Chronic obstructive pulmonary disease, unspecified; G50.0 Trigeminal neuralgia; Z87.891 Personal history of nicotine dependence
CPT/HCPCS: 99282

== ENCOUNTER 2025-02-21 07:31 | Emergency (ER) | payer MEDICARE, SELFPAY ==
[2025-02-21 07:31] VITALS: BP 158/69; PULSE 96; RESP 14; TEMP 36.2; O2SAT 98; BMI 22.0
--- NOTE | 2025-02-21 07:53 | EX.ED.DYSGE1 ---
HPI History of Present Illness Chief Complaint: Med Refill Narrative Narrative: Patient is a 84-year-old female presenting to the emergency department for refill on her medications prescribed for trigeminal neuralgia. Patient states that about 2 months ago she was seen here and diagnosed with this. She has a follow-up with neurology in May. States she has a follow-up with her primary care doctor on March 18. She states she does not have a car and has to schedule transportation. States that she is on a wait list for her primary care doctor and they had an appointment today at 5 PM but she cannot schedule a cab this quick in advance. Denies any facial pain here at time of evaluation. Denies any headache. Denies any visual changes. States when it occurs it is a shooting pain in the right side of her face. Reports that the Tegretol is helping. [facility] Medical History COPD (chronic obstructive pulmonary disease) Home Medications ?Medication ?Instructions ?Recorded ?Last Taken ?Type amoxicillin 875 mg-potassium 1 tab PO BID 10 days #20 tabs 04/15/21 Unknown Rx clavulanate 125 mg tablet (Augmentin) baclofen 5 mg tablet 5 mg PO TID PRN muscle 12/25/24 Unknown Rx spasm/facial pain #30 tabs carbamazepine 200 mg tablet 200 mg PO TID 30 days #90 tabs 12/25/24 Unknown Rx (Tegretol) ondansetron 4 mg disintegrating 4 mg PO TID PRN nausea and 12/25/24 Unknown Rx tablet vomiting #21 tabs carbamazepine 200 mg tablet 200 mg PO TID #90 tabs 01/30/25 Unknown Rx (Epitol) carbamazepine 200 mg tablet 200 mg PO TID #90 tabs 02/21/25 Unknown Rx (Tegretol) Allergy/AdvReac Type Severity Reaction Status Date / Time gluten Allergy Nausea/Vom/ Verified 02/21/25 07:32 Diarrhea Iodinated Contrast Media Allergy UNSURE Verified 02/21/25 07:32 (contrast dye - iodinated) Surgical History History of lumpectomy S/P appendectomy Social History Smoking Status: Former smoker ROS ROS ED ROS Narrative see HPI EXAM Physical Exam Narrative Exam Narrative: Vital signs: Reviewed General: Alert and orientedx3. No acute distress HEENT: Head is normocephalic and atraumatic, sinuses nontender, pupils equal round and reactive. Nares are patent. Oropharynx and throat exams normal. Neck: Supple without lymphadenopathy nontender Cardiovascular: Regular rate and rhythm, no murmurs. No rubs or gallops. Normal S1 and S2 Respiratory: Clear to auscultation bilaterally. No wheezes, rales, rhonchi Abdominal: Soft and nontender. Normal bowel sounds. No guarding or rebound. Nonsurgical abdomen Extremities: No tenderness. No bruising. Normal range of motion. Normal sensation. Skin: No rash or redness. Neurological: Cranial nerves II through XII are grossly intact. Normal strength and sensation. Normal cerebellar function The rest of the physical exam is unremarkable Const Vital Signs: 02/21/25 07:31 Temperature 97.2 F L Temperature Source Temporal Pulse Rate 96 Respiratory Rate 14 Blood Pressure 158/69 H Blood Pressure Mean 98 Pulse Ox 98 Oxygen Delivery Method Room Air MDM MDM MDM Narrative Medical decision making narrative: Patient is an 84-year-old female presenting to the emergency department for a medication refill. Patient was seen and examined. Vitals are stable. Patient resting in chair comfortably in no acute distress. Patient has no pain at time of evaluation. Neurologic exam is unremarkable. She has primary care and neurology follow-up scheduled. She is bringing in paperwork from recent urgent care visit where she was prescribed a short dose of prednisone. States she has had some diarrhea secondary to this. She is now finished with this prescription. She is having no fever, chills, nausea, vomiting, abdominal pain. Patient was given a refill of the Tegretol. She was instructed to follow-up with her primary care doctor soon as possible, notified that she will need her liver enzymes rechecked given she has been on this for about 2 months. Patient understands. Patient discharged from the Emergency Department. I do not feel that the patient's evaluation reveals any acute reason for admission at this time. I instructed them to either follow-up with their primary care physician or promptly return to the Emergency Department for reevaluation should symptoms worsen or new symptoms develop. I explained what symptoms would indicate the need to return to the emergency department. Shared decision making was used. The patient voiced understanding of the treatment plan and is agreeable with it. Clinical impression Medication refill Discharge Plan Triage Chief Complaint: Med Refill ED Provider: Senait Stallings Dx/Rx/DC Orders Clinical Impression: Trigeminal neuralgia of right side of face Instructions: Trigeminal Neuralgia Prescriptions: New carbamazepine [Tegretol] 200 mg tablet 200 mg PO TID Qty: 90 0RF No Action amoxicillin-pot clavulanate [Augmentin] 875-125 mg tablet 1 tab PO BID 10 Days Qty: 20 0RF carbamazepine [Tegretol] 200 mg tablet 200 mg PO TID 30 Days Qty: 90 0RF baclofen 5 mg tablet 5 mg PO TID PRN (Reason: muscle spasm/facial pain) Qty: 30 1RF ondansetron 4 mg tablet,disintegrating 4 mg PO TID PRN (Reason: nausea and vomiting) Qty: 21 0RF carbamazepine [Epitol] 200 mg tablet 200 mg PO TID Qty: 90 0RF Primary Care Provider: Care Physician,No Primary Referrals: your primary care doctor [Other] - 1 Day Care Physician,No Primary [Primary Care Provider] - Activity Restrictions/Additional Instructions: Call your primary care doctor today to be seen as soon as possible. Being on this medication you will need to have your liver enzymes checked on an outpatient basis. Your evaluation in the Emergency Department did not reveal any acute reason for admission. However, I want to emphasize that you may be early in the course of a disease process or illness even if it is not present. For this reason you should follow-up within 24 hours for reevaluation with either your primary care physician or if necessary back here in the Emergency Department. You should return to the Emergency Department immediately if your symptoms worsen or new symptoms develop. Print Language: Malay Disposition Disposition: Home, Self Care
== END 2025-02-21 08:01 | disposition home or self-care (01) ==
PROVIDERS: Emergency Provider Student in an Organized Health Care Education/Training Program; Visit Provider Student in an Organized Health Care Education/Training Program
DX: G50.0 Trigeminal neuralgia (principal); J44.9 Chronic obstructive pulmonary disease, unspecified; Z87.891 Personal history of nicotine dependence; Z76.0 Encounter for issue of repeat prescription; Z90.49 Acquired absence of other specified parts of digestive tract
CPT/HCPCS: 99282